=== PATIENT | female | born 1970 | race Caucasian/White ===

== ENCOUNTER 2017-10-04 13:56 | Emergency (ER) | payer BC ==
[2017-10-04] MEDS ORDERED: HYDROmorphone 1 MG/ML Syringe IM ONE (14:25)
--- NOTE | 2017-10-04 14:38 | EDM.PDOC ---
ED HPI GENERAL MEDICAL PROBLEM - General Chief Complaint: Lower Extremity Injury/Pain Stated Complaint: Left knee pain Time Seen by Provider: 10/04/17 14:10 Source of Information: Reports: Patient, RN Notes Reviewed History Limitations: Reports: No Limitations - History of Present Illness INITIAL COMMENTS - FREE TEXT/NARRATIVE: 47 year old female presents to the ED with complaints of left anterior knee pain and swelling. She said the symptoms came on suddenly after standing up off of a stool. She says her knee locked up. She's unable to straighten it or bear weight. She is unable to tolerate toe touch weight bearing. She ambulated in to the ED on crutches. She says the pain is excruciating. She reports left knee arthritis that is "bone on bone." She is scheduled to have a total knee replacement in November with a specialist in [facility]. She took 1 hydrocodone about 1 hour [employer] with no improvement. She denies numbness, tingling, fever, calf pain. Patient is unable to take NSAIDs due to history of bleeding gastric ulcer. Left Knee Pain Score (Numeric/FACES): 4 - Related Data Allergies Allergy/AdvReac Type Severity Reaction Status Date / Time No Known Allergies Allergy Verified 10/04/17 14:03 Home Meds: Home Meds Acetaminophen/oxyCODONE [Percocet 325-5 MG] 1 - 2 tab PO Q4H PRN #20 tablet [Rx] Review of Systems - Review of Systems Review Of Systems: See Below Constitutional: Reports: No Symptoms. Denies: Chills, Fever Musculoskeletal: Reports: Joint Pain, Joint Swelling Skin: Reports: No Symptoms. Denies: Erythema, Wound Neurological: Reports: No Symptoms. Denies: Numbness, Tingling ED EXAM, GENERAL - Physical Exam Exam: See Below Exam Limited By: No Limitations General Appearance: Alert, WD/WN, Moderate Distress Extremities: Joint Swelling, Other (Left knee joint effusion. Tenderness to palpation of the anterior knee. No deformity, erythema, or crepitus. Patient is sitting with knee slightly flexed. She is guarded and unwilling to move the knee. Exam is limited. Neurovascular status is intact distally. Negative brenna' s. No calf erythema or swelling. Swelling is isolated to the knee joint. No increased warmth. ). No: Brenna's Sign Neurological: Alert, Normal Cognition, No Motor/Sensory Deficits Skin Exam: Warm, Dry, Intact. No: Erythema, Increased Warmth Course - Vital Signs Last Recorded V/S: Last Vital Signs Temp 97.5 F 10/04/17 14:05 Pulse 81 10/04/17 14:05 Resp 20 10/04/17 14:05 BP 142/88 H 10/04/17 14:05 Pulse Ox 97 10/04/17 14:05 - Orders/Labs/Meds Orders: Active Orders 24 hr Category Date Time Status DME for Discharge [COMM] Stat Oth 10/04/17 15:29 Ordered Meds: Medications Discontinued Medications Generic Name Dose Route Start Last Admin Trade Name Freq PRN Reason Stop Dose Admin Hydromorphone HCl 1 mg 10/04/17 14:25 10/04/17 14:33 Dilaudid IM 10/04/17 14:26 1 mg ONETIME ONE Administration - Re-Assessments/Exams Free Text/Narrative Re-Assessment/Exam: X-ray of left knee reviewed with Dr. South. No acute injury identified. Her patella is well aligned. She has osteophytes to the patella, medial and lateral knee. Joint space is narrowed. Dr. Quiroz read the x-ray and agrees with findings but reports suboptimal study. He recommended CT or MRI if needed. Patient did not have an acute injury, therefore further imaging is not indicated. Will place patient in mo wrap and and knee immobilizer as tolerated for symptom relief. Educated on supportive care. Discharge instructions as documented. Departure - Departure Time of Disposition: 15:51 Disposition: Home, Self-Care 01 Condition: Good Clinical Impression: DJD (degenerative joint disease) of knee Qualifiers: Osteoarthritis type: unspecified Laterality: left Qualified Code(s): M17.12 - Unilateral primary osteoarthritis, left knee - Discharge Information Prescriptions: Acetaminophen/oxyCODONE [Percocet 325-5 MG] 1 - 2 tab PO Q4H PRN #20 tablet PRN Reason: Pain Referrals: Nannette Wiley MD [Primary Care Provider] - Forms: ED Department Discharge Additional Instructions: Rest, ice and elevate Mo wrap as tolerated Knee immobilizer as tolerated Percocet 1-2 tabs every 4-6 hours as needed for pain Call your surgeon on Saturday - My Orders Last 24 Hours: My Active Orders 10/04/17 15:29 DME for Discharge [COMM] Stat - Assessment/Plan Last 24 Hours: My Active Orders 10/04/17 15:29 DME for Discharge [COMM] Stat
--- NOTE | 2017-10-04 15:40 | CR ---
Left knee: 4 views of the left knee were obtained. Comparison: Previous left knee study of 01/01/17. Joint spaces are not well seen due to knee flexion. Medial joint space narrowing is seen on prior study. Osteophytes are noted off the medial and lateral knees. Osteophytes are noted off the patella. No joint effusion is seen. Impression: 1. Suboptimal study due to knee flexion. Degenerative change is felt to be present. 2. No definite acute abnormality is seen. If patient has sufficient symptoms, CT or MRI could be considered to further evaluate. Diagnostic code #3
== END 2017-10-04 16:30 | disposition home or self-care (01) ==
LOC: JD.ED 13:56
DX: M17.12 Unilateral primary osteoarthritis, left knee (principal)
CPT/HCPCS: 73564; 96372; 99283; J1170

== ENCOUNTER 2019-08-02 16:16 | Emergency (ER) | payer BC ==
--- NOTE | 2019-08-02 17:07 | EDM.PDOC ---
ED HPI GENERAL MEDICAL PROBLEM - General Chief Complaint: Chest Pain Stated Complaint: CHEST PRESSURE,SOB Time Seen by Provider: 08/02/19 16:33 Source of Information: Reports: Patient, RN Notes Reviewed - History of Present Illness INITIAL COMMENTS - FREE TEXT/NARRATIVE: 49 year old female with onset of cough, congestion, sore throat about 2 weeks ago. She continues with frequent cough that is worsening, mostly nonproductive. she has has sinus congestion and drainage. she did have fever and chills initially that is gone. She was started on a course of doxycycline about 4 days ago. - Related Data Allergies Allergy/AdvReac Type Severity Reaction Status Date / Time No Known Allergies Allergy Verified 03/03/19 10:16 Home Meds: Home Meds Cholecalciferol (Vitamin D3) [Vitamin D3] 1 tab PO DAILY 08/02/19 [History] Fish Oil/[place]-3 Fatty Acids [Fish Oil 1,000 MG] 1 tab PO DAILY 08/02/19 [ History] Multivitamin [Multivitamins] 1 tab PO DAILY 08/02/19 [History] Vitamin B Complex 1 tab PO DAILY 08/02/19 [History] Zolpidem [Ambien] 10 mg PO DAILY 08/02/19 [History] metFORMIN [Glucophage XR] 750 mg PO BID 08/02/19 [History] Past Medical History MIXER PIGMENT History: Reports: , Other (See Below) Other MIXER PIGMENT History: breast 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, tummy tuck Musculoskeletal History: Reports: Other (See Below) Other Musculoskeletal History: chronic knee pain; knee replacement scheduled in november - Past Surgical History HEENT Surgical History: Reports: Adenoidectomy, Tonsillectomy GI Surgical History: Reports: Appendectomy, Cholecystectomy Female Surgical History: Reports: Breast Reconstruction Social & Family History - Family History Family Medical History: Noncontributory - Tobacco Use Smoking Status *Q: Never Smoker Second Hand Smoke Exposure: No - Caffeine Use Caffeine Use: Reports: Soda - Recreational Drug Use Recreational Drug Use: No ED ROS GENERAL - Review of Systems Review Of Systems: See Below Constitutional: Reports: Fever, Chills HEENT: Reports: Rhinitis, Sinus Problem (she does have sinus salvador. ), Throat Pain (agone) Respiratory: Denies: Shortness of Breath Cardiovascular: Reports: Chest Pain (with coughing) GI/Abdominal: Denies: Abdominal Pain, Nausea, Vomiting Musculoskeletal: Denies: Shoulder Pain, Arm Pain Skin: Reports: No Symptoms Neurological: Reports: No Symptoms ED EXAM, GENERAL - Physical Exam Exam: See Below General Appearance: Alert, Other (frequent nonproductive cough) Eye Exam: Bilateral Eye: PERRL Neck: Supple Respiratory/Chest: No Respiratory Distress, Lungs Clear, Normal Breath Sounds. No: Rhonchi, Wheezing Cardiovascular: Regular Rate, Rhythm Back Exam: No: CVA Tenderness (L), CVA Tenderness (R) Extremities: Normal Inspection, Normal Range of Motion. No: Pedal Edema, Leg Pain Skin Exam: Warm, Dry, Normal Color EKG INTERPRETATION EKG Date: 08/02/19 Rhythm: NSR [place]: Normal P-Wave: Present QRS: Normal ST-T: Normal Course - Vital Signs Last Recorded V/S: Last Vital Signs Temp 97.6 F 08/02/19 16:32 Pulse 62 08/02/19 16:32 Resp 16 08/02/19 16:32 BP 143/89 H 08/02/19 16:32 Pulse Ox 100 08/02/19 18:01 - Orders/Labs/Meds Orders: Active Orders 24 hr Category Date Time Status EKG 12 Lead [EKG Documentation Completion] [RC] STAT Care 08/02/19 16:49 Active RT Aerosol Therapy [RC] ASDIRECTED Care 08/02/19 18:01 Active Chest 1V Frontal [CR] Stat Exams 08/02/19 16:48 Taken Labs: Laboratory Tests 08/02/19 Range/Units 16:59 WBC 7.61 (3.98-10.04) K/mm3 RBC 4.10 (3.98-5.22) M/mm3 Hgb 12.5 (11.2-15.7) gm/L Hct 36.8 (34.1-44.9) % MCV 89.8 (79.4-94.8) fl MCH 30.5 (25.6-32.2) pg MCHC 34.0 (32.2-35.5) g/dl RDW Std Deviation 42.2 (36.4-46.3) fL Plt Count 262 (182-369) K/mm3 MPV 9.5 (9.4-12.3) fl Neut % (Auto) 49.8 (34.0-71.1) % Lymph % (Auto) 40.5 (19.3-51.7) % [place] % (Auto) 7.9 (4.7-12.5) % Eos % (Auto) 1.4 (0.7-5.8) Baso % (Auto) 0.3 (0.1-1.2) % Neut # (Auto) 3.79 (1.56-6.13) K/mm3 Lymph # (Auto) 3.08 (1.18-3.74) K/mm3 [place] # (Auto) 0.60 H (0.24-0.36) K/mm3 Eos # (Auto) 0.11 (0.04-0.36) K/mm3 Baso # (Auto) 0.02 (0.01-0.08) K/mm3 Meds: Medications Discontinued Medications Generic Name Dose Route Start Last Admin Trade Name Freq PRN Reason Stop Dose Admin Albuterol 2.5 mg 08/02/19 18:01 08/02/19 18:10 Proventil Neb Soln NEB 08/02/19 18:02 2.5 mg ONETIME ONE Administration Albuterol Confirm 08/02/19 18:08 08/02/19 18:13 Proventil Neb Soln Administered 08/02/19 18:09 Not Given Dose 2.5 mg .ROUTE .STK-MED ONE - Re-Assessments/Exams Free Text/Narrative Re-Assessment/Exam: 08/02/19 18:57 CXR, WBC nl, she did get good relief of her cough after an albuterol neb., discharge instr. as documented. Departure - Departure Time of Disposition: 18:18 Disposition: Home, Self-Care 01 Condition: Fair Clinical Impression: Bronchitis - Discharge Information Instructions: Acute Bronchitis, Adult, [id number] Referrals: Melvi Allred PA-C [Primary Care Provider] - Forms: ED Department Discharge Additional Instructions: continue doxycycline antibiotic as prescribed, rest, vaporizer or steam as needed. Albuterol inhaler, 2 puffs q 4 to 6 hours as needed for further difficulty coughing or breathing. Follow up clinic in about 5 days for recheck if not better, return to ED as needed if symptoms worsening in any way. - My Orders Last 24 Hours: My Active Orders 08/02/19 16:48 Chest 1V Frontal [CR] Stat 08/02/19 16:49 EKG 12 Lead [EKG Documentation Completion] [RC] STAT 08/02/19 18:01 RT Aerosol Therapy [RC] ASDIRECTED - Assessment/Plan Last 24 Hours: My Active Orders 08/02/19 16:48 Chest 1V Frontal [CR] Stat 08/02/19 16:49 EKG 12 Lead [EKG Documentation Completion] [RC] STAT 08/02/19 18:01 RT Aerosol Therapy [RC] ASDIRECTED
[2019-08-02] MEDS ORDERED: Albuterol 0.083% 2.5 MG/3 ML Neb Soln NEB ONE (18:01)
[2019-08-02] MEDS ORDERED: Albuterol 0.083% 2.5 MG/3 ML Neb Soln ONE (18:08)
--- NOTE | 2019-08-03 14:12 | CR ---
Chest: Portable view of the chest was obtained. Comparison: No prior chest x-ray. Heart size and mediastinum are normal. Lungs are clear. Bony structures are grossly intact. Impression: 1. Nothing acute is appreciated on portable chest x-ray. Diagnostic code #1
== END 2019-08-02 19:05 | disposition home or self-care (01) ==
LOC: JD.ED 16:16
DX: J40 Bronchitis, not specified as acute or chronic (principal); Z79.899 Other long term (current) drug therapy
CPT/HCPCS: 36415; 71045; 71045-26; 85025; 93005; 93010; 94640; 99283; 99285-25

== ENCOUNTER 2020-02-04 13:55 | Emergency (ER) | payer BC ==
[2020-02-04] MEDS ORDERED: Ondansetron 4 MG/2 ML SDV IVPUSH ONE (14:46)
[2020-02-04] MEDS ORDERED: Sodium Chloride 0.9% 10 ML Syringe FLUSH PRN (14:46)
[2020-02-04] MEDS ORDERED: Ketorolac 30 MG/ML SDV IVPUSH ONE (14:46)
[2020-02-04] MEDS ORDERED: Sodium Chloride 0.9% 1,000 ML IV SCH (15:00)
[2020-02-04] MEDS ORDERED: Diatrizoate Meglumine/Diatrizoate Sodium 37% 120 ML Bottle PO ONE (15:00)
[2020-02-04] MEDS ORDERED: Iopamidol 612 MG/ML 100 ML Bottle IVPUSH ONE (15:00)
[2020-02-04] MEDS ORDERED: Sodium Chloride 0.9% 10 ML Syringe FLUSH ONE (15:00)
--- NOTE | 2020-02-04 17:19 | CT ---
CT abdomen and pelvis Technique: Multiple axial sections were obtained from above the dome of the diaphragm inferiorly through the pubic symphysis. Intravenous and oral contrast was utilized. Delayed images were obtained through the bladder. Findings: Small bowel appears slightly dilated. Uncertain if this is real or due to distention from contrast. Prior abdominal wall surgery is noted with midline scar. Visualized lung bases show nothing acute. Partially visualized bilateral breast prosthesis are noted. Liver shows no focal abnormality. Spleen appears within normal limits. Small hiatal hernia is seen. Gastric surgery is noted. Adrenal glands show no nodule. Pancreas is within normal limits. Surgical clips seen from prior cholecystectomy. Kidneys show symmetric contrast enhancement without hydronephrosis or mass. Aorta shows no aneurysm. No retroperitoneal adenopathy or mesenteric abnormalities are seen. No pelvic mass or adenopathy is identified. Appendix not visualized with certainty. No free fluid or inflammatory change is seen. Scattered diverticuli are seen within the colon without inflammatory change of diverticulitis. Bone window settings were reviewed which shows slight degenerative change scattered within the spine. Delayed images shows contrast within the bladder. Impression: 1. Mildly dilated small bowel. As mentioned above, uncertain if this is real or due to distention from contrast. I suspect the latter is the most likely etiology. Supine and upright abdominal x-ray is recommended to further evaluate. 2. Other nonacute findings as noted above. Diagnostic code #3 Study was dictated in MDT
[2020-02-04] MEDS ORDERED: HYDROmorphone 0.5 MG/0.5 ML Syringe IVPUSH ONE ×3 (17:27→19:14)
--- NOTE | 2020-02-04 18:02 | EDM.PDOC ---
ED HPI GENERAL MEDICAL PROBLEM - General Chief Complaint: Abdominal Pain Stated Complaint: ABDOMINAL PAIN/CRAMPING Time Seen by Provider: 02/04/20 14:29 Source of Information: Reports: Patient History Limitations: Reports: No Limitations - History of Present Illness INITIAL COMMENTS - FREE TEXT/NARRATIVE: Patient is a 49-year-old female who presents with complaints abdominal pain, nausea, vomiting, and fatigue. Patient states that she was recently on a trip to [place]. She returned on Saturday or Saturday. She verbalizes that she is supposed to wear in entire body compression wrap due to some plastic surgery she had last fall. She did not wear this when she went to [place], so she thought that her symptoms were related to retaining fluid. Symptoms have been getting progressively worse. She states that she had a little bit of diarrhea on Saturday, however has not had any since that time. This morning she had some dry heaving and then vomiting of yellow bile. She describes the abdominal pain is crampy in nature and is generalized throughout the abdomen. She has note she has had no known sick contacts. She does not think she is had a bowel movement for the last few days and does not feel like she has been passing gas. Denies any fever or chills. Abdomen Pain Score (Numeric/FACES): 8 - Related Data Allergies Allergy/AdvReac Type Severity Reaction Status Date / Time No Known Allergies Allergy Verified 02/04/20 14:17 Home Meds: Home Meds Cholecalciferol (Vitamin D3) [Vitamin D3] 1 tab PO DAILY 08/02/19 [History] Fish Oil/[place]-3 Fatty Acids [Fish Oil 1,000 MG] 1 tab PO DAILY 08/02/19 [ History] Multivitamin [Multivitamins] 1 tab PO DAILY 08/02/19 [History] Vitamin B Complex 1 tab PO DAILY 08/02/19 [History] Zolpidem [Ambien] 10 mg PO DAILY 08/02/19 [History] metFORMIN [Glucophage XR] 750 mg PO BID 08/02/19 [History] Ascorbate Calcium [Vitamin C] 500 mg PO DAILY 02/04/20 [History] Ferrous Sulfate [Iron] 325 mg PO DAILY 02/04/20 [History] Past Medical History Cardiovascular History: Reports: None Respiratory History: Reports: None Gastrointestinal History: Reports: Other (See Below) Other Gastrointestinal History: Ulcers 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: breast 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, tummy tuck Musculoskeletal History: Reports: Other (See Below) Other Musculoskeletal History: chronic knee pain; knee replacement scheduled in november Neurological History: Reports: None Psychiatric History: Reports: None Endocrine/Metabolic History: Reports: None Hematologic History: Reports: None Immunologic History: Reports: None Oncologic (Cancer) History: Reports: None - Infectious Disease History Infectious Disease History: Reports: None - Past Surgical History HEENT Surgical History: Reports: Adenoidectomy, Tonsillectomy GI Surgical History: Reports: Appendectomy, Bariatric Procedure, Cholecystectomy , Other (See Below) Female Surgical History: Reports: Breast Implant, Breast Reconstruction Musculoskeletal Surgical History: Reports: Knee Replacement Dermatological Surgical History: Reports: Plastic Surgical Reconstruction/Repair Social & Family History - Family History Family Medical History: Noncontributory - Tobacco Use Smoking Status *Q: Never Smoker - Caffeine Use Caffeine Use: Reports: Coffee, Soda - Recreational Drug Use Recreational Drug Use: Yes Recreational Drug Type: Reports: Marijuana/Hashish Other Recreational Drug Type: Medical Marijuana ED ROS GENERAL - Review of Systems Review Of Systems: Comprehensive ROS is negative, except as noted in HPI. ED EXAM, GI/ABD - Physical Exam Exam: See Below Exam Limited By: No Limitations General Appearance: Alert, WD/WN, No Apparent Distress Respiratory/Chest: No Respiratory Distress, Lungs Clear, Normal Breath Sounds, No Accessory Muscle Use, Chest Non-Tender Cardiovascular: Normal Peripheral Pulses, Regular Rate, Rhythm, No Edema, No Gallop, No JVD, No Murmur, No Rub GI/Abdominal Exam: Normal Bowel Sounds, Soft, No Organomegaly, No Distention, No Abnormal Bruit, No Mass, Pelvis Stable, Tender (Generalized throughout) Neurological: Alert, Oriented, CN II-XII Intact, Normal Cognition, Normal Gait, Normal Reflexes, No Motor/Sensory Deficits Psychiatric: Normal Affect, Normal Mood Skin Exam: Warm, Dry, Intact, Normal Color, No Rash Course - Vital Signs Last Recorded V/S: Last Vital Signs Temp 96.2 F L 02/04/20 14:11 Pulse 90 02/04/20 14:11 Resp 16 02/04/20 14:11 BP 133/86 02/04/20 14:11 Pulse Ox 98 02/04/20 14:11 - Orders/Labs/Meds Orders: Active Orders 24 hr Category Date Time Status Peripheral IV Care [RC] . DIRECTED Care 02/04/20 14:47 Active Sodium Chloride 0.9% [Normal Saline] 1,000 ml Med 02/04/20 15:00 Active IV ASDIRECTED Sodium Chloride 0.9% [Saline Flush] Med 02/04/20 14:46 Active 10 ml FLUSH ASDIRECTED PRN Peripheral IV Insertion Adult [OM.PC] Stat Oth 02/04/20 14:46 Ordered Medication Orders Sodium Chloride (Normal Saline) 1,000 mls @ 150 mls/hr IV ASDIRECTED LOLI Last Admin: 02/04/20 15:02 Dose: 150 mls/hr Sodium Chloride (Saline Flush) 10 ml FLUSH ASDIRECTED PRN PRN Reason: Keep Vein Open Last Admin: 02/04/20 16:04 Dose: 10 ml Labs: Laboratory Tests 02/04/20 02/04/20 02/04/20 Range/Units 15:15 15:15 18:35 WBC 13.54 H (3.98-10.04) K/mm3 RBC 5.08 (3.98-5.22) M/mm3 Hgb 15.1 D (11.2-15.7) gm/dl Hct 45.4 H (34.1-44.9) % MCV 89.4 (79.4-94.8) fl MCH 29.7 (25.6-32.2) pg MCHC 33.3 (32.2-35.5) g/dl RDW Std Deviation 43.2 (36.4-46.3) fL Plt Count 236 (182-369) K/mm3 MPV 10.1 (9.4-12.3) fl Neut % (Auto) 95.4 H (34.0-71.1) % Lymph % (Auto) 2.2 L (19.3-51.7) % [place] % (Auto) 2.1 L (4.7-12.5) % Eos % (Auto) 0.1 L (0.7-5.8) Baso % (Auto) 0.1 (0.1-1.2) % Neut # (Auto) 12.89 H (1.56-6.13) K/mm3 Lymph # (Auto) 0.30 L (1.18-3.74) K/mm3 [place] # (Auto) 0.29 (0.24-0.36) K/mm3 Eos # (Auto) 0.02 L (0.04-0.36) K/mm3 Baso # (Auto) 0.02 (0.01-0.08) K/mm3 Manual Slide Review Abnormal smear Sodium 137 (136-145) mEq/L Potassium 4.3 (3.5-5.1) mEq/L Chloride 101 (98-107) mEq/L Carbon Dioxide 25 (21-32) mEq/L Anion Gap 15.3 H (5-15) BUN 23 H (7-18) mg/dL Creatinine 0.7 (0.55-1.02) mg/dL Est Cr Clr Drug Dosing 68.29 mL/min Estimated GFR (MDRD) > 60 (>60) mL/min BUN/Creatinine Ratio 32.9 H (14-18) Glucose 124 H (74-106) mg/dL Calcium 9.2 (8.5-10.1) mg/dL Total Bilirubin 0.5 (0.2-1.0) mg/dL AST 14 L (15-37) U/L ALT 25 (14-59) U/L Alkaline Phosphatase 101 (46-116) U/L C-Reactive Protein 2.3 H* (<1.0) mg/dL Total Protein 7.4 (6.4-8.2) g/dl Albumin 3.9 (3.4-5.0) g/dl Globulin 3.5 gm/dL Albumin/Globulin Ratio 1.1 (1-2) Urine Color Yellow (Yellow) Urine Appearance Clear (Clear) Urine pH 5.5 (5.0-8.0) Ur Specific [place] 1.010 (1.005-1.030) Urine Protein Negative (Negative) Urine Glucose (UA) Negative (Negative) Urine Ketones 1+ H (Negative) Urine Occult Blood Negative (Negative) Urine Nitrite Negative (Negative) Urine Bilirubin Negative (Negative) Urine Urobilinogen 0.2 (0.2-1.0) Ur Leukocyte Esterase Negative (Negative) Urine RBC 0-5 (0-5) /hpf Urine WBC 0-5 (0-5) /hpf Ur Squamous Epith Cells 0-5 (0-5) /hpf Urine Bacteria Occasional (FEW) /hpf Urine Mucus Not seen (FEW) /hpf Meds: Medications Generic Name Dose Route Start Last Admin Trade Name Lala PRN Reason Stop Dose Admin Sodium Chloride 1,000 mls @ 150 mls/hr 02/04/20 15:00 02/04/20 15:02 Normal Saline IV 150 mls/hr ASDIRECTED LOLI Administration Sodium Chloride 10 ml 02/04/20 14:46 02/04/20 16:04 Saline Flush FLUSH 10 ml ASDIRECTED PRN Administration Keep Vein Open Discontinued Medications Generic Name Dose Route Start Last Admin Trade Name Freq PRN Reason Stop Dose Admin Diatrizoate Meglum/Diatrizoate Sod 90 ml 02/04/20 15:00 02/04/20 16:04 Gastrografin 37% PO 02/04/20 15:01 90 ml ONETIME ONE Administration Dicyclomine HCl 20 mg 02/04/20 18:41 Bentyl PO 02/04/20 18:42 ONETIME ONE Hydromorphone HCl 0.5 mg 02/04/20 17:27 02/04/20 17:30 Dilaudid IVPUSH 02/04/20 17:28 0.5 mg ONETIME ONE Administration Hydromorphone HCl Confirm 02/04/20 17:28 02/04/20 18:57 Dilaudid Administered 02/04/20 17:29 Not Given Dose 0.5 mg .ROUTE .STK-MED ONE Hydromorphone HCl 0.5 mg 02/04/20 18:46 02/04/20 18:58 Dilaudid IVPUSH 02/04/20 18:47 0.5 mg ONETIME ONE Administration Hydromorphone HCl 0.5 mg 02/04/20 19:14 02/04/20 19:20 Dilaudid IVPUSH 02/04/20 19:15 0.5 mg ONETIME ONE Administration Iopamidol 100 ml 02/04/20 15:00 02/04/20 16:04 Isovue-300 (61%) IVPUSH 02/04/20 15:01 100 ml ONETIME ONE Administration Ketorolac Tromethamine 30 mg 02/04/20 14:46 02/04/20 15:01 Toradol IVPUSH 02/04/20 14:47 30 mg ONETIME ONE Administration Lorazepam 0.5 mg 02/04/20 18:36 02/04/20 18:47 Ativan IVPUSH 02/04/20 18:37 0.5 mg ONETIME ONE Administration Ondansetron HCl 4 mg 02/04/20 14:46 02/04/20 15:02 Zofran IVPUSH 02/04/20 14:47 4 mg ONETIME ONE Administration Sodium Chloride 10 ml 02/04/20 15:00 02/04/20 15:18 Saline Flush FLUSH 02/04/20 15:01 10 ml ONETIME ONE Administration - Re-Assessments/Exams Free Text/Narrative Re-Assessment/Exam: I have ordered a CBC, CMP, CRP, urinalysis. Based on patient's symptoms and her history of abdominal surgeries, I will complete a CT scan to evaluate for possible small bowel obstruction. 02/04/20 18:03 WBCs were elevated at 13.54, anion gap slightly elevated at 15.3, BUN 23, CRP 2.3, urinalysis is still pending. CT of the abdomen showed a mildly dilated small bowel. Radiologist was uncertain if it was due to distention from the contrast or an actual dilation. He recommended a abdomen flat and upright be completed to evaluate this. I have ordered this test. Patient complained of increased abdominal cramping as well as a headache. I will order Dilaudid 0.5 mg to be given now. 02/04/20 19:05 Abdomen 2 view x-ray shows gas rhythm with several mildly dilated small bowel loops. Contrast is seen within the colon. Findings rule out complete bowel obstruction but partial small bowel obstruction is felt to be present. I called and spoke with the on-call surgeon, Dr. Oro. He will reviewed the images and call back. 02/04/201949 Dr. Rojas was here to see the patient. He verbalized that he did not necessarily see the small bowel obstruction on the imaging, however with her history of bariatric surgery he felt that it would be beneficial for her to be seen by bariatric surgeon. Called [facility]. Spoke to Dr. South. She accepted the patient for direct admission. Patient will be transferred via [facility]. Departure - Departure Time of Disposition: 19:50 Disposition: DC/Tfer to Acute Hospital 02 Condition: Fair Clinical Impression: Abdominal pain Qualifiers: Abdominal location: generalized Qualified Code(s): R10.84 - Generalized abdominal pain - Discharge Information Referrals: Fridrich,Melvi F, PA-C [Primary Care Provider] - Forms: ED Department Discharge Sepsis Event Note - Evaluation Sepsis Screening Result: No Definite Risk - Focused Exam Vital Signs: Vital Signs Temp Pulse Resp BP Pulse Ox 02/04/20 14:11 96.2 F L 90 16 133/86 98 Date Exam was Performed: 02/04/20 Time Exam was Performed: 20:00 - My Orders Last 24 Hours: My Active Orders 02/04/20 14:46 Sodium Chloride 0.9% [Saline Flush] 10 ml FLUSH ASDIRECTED PRN Peripheral IV Insertion Adult [OM.PC] Stat 02/04/20 14:47 Peripheral IV Care [RC] . DIRECTED 02/04/20 15:00 Sodium Chloride 0.9% [Normal Saline] 1,000 ml IV ASDIRECTED - Assessment/Plan Last 24 Hours: My Active Orders 02/04/20 14:46 Sodium Chloride 0.9% [Saline Flush] 10 ml FLUSH ASDIRECTED PRN Peripheral IV Insertion Adult [OM.PC] Stat 02/04/20 14:47 Peripheral IV Care [RC] . DIRECTED 02/04/20 15:00 Sodium Chloride 0.9% [Normal Saline] 1,000 ml IV ASDIRECTED
[2020-02-04] MEDS ORDERED: LORazepam 2 MG/ML SDV IVPUSH ONE (18:36)
[2020-02-04] MEDS ORDERED: Dicyclomine 10 MG Cap PO ONE (18:41)
[2020-02-04] MEDS: HYDROmorphone 0.5 MG/0.5 ML Syringe ONE ×2 (18:46→18:57)
--- NOTE | 2020-02-04 18:48 | CR ---
Abdomen: Supine and upright views the abdomen were obtained. Air is noted within several persisting dilated loops of small bowel are seen. Contrast is noted within the colon from prior CT exam. Contrast is also noted within the bladder. Findings are compatible with a partial small bowel obstruction. Bony structures are unremarkable. Multiple surgical clips within the abdomen are seen. Impression: 1. Gas within several mildly dilated small bowel loops. Contrast is seen within the colon. Findings rule out complete small bowel obstruction but partial small bowel obstruction is felt to be present. Diagnostic code #3 Study was dictated in MDT
--- NOTE | 2020-02-04 20:05 | PCM.HP.2 ---
H&P History of Present Illness - General Date of Service: 02/04/20 Source of Information: Patient History Limitations: Reports: No Limitations - History of Present Illness Initial Comments - Free Text/Narative: Patient has hx of RNYGB 9yrs ago and presents with history of progressively worsening abdominal pain, malaise and nausea. This started on Saturday where the patient reports malaise and lack of appetite after returning from vacation in [place]. Over the course of the following days, the patients abdominal pain became more intense and frequent, especially later during the day. yesterday she started to dry heave and today she had bilious emesis. This has intensified. She reports that she is able to tolerate protein shakes but not much solids. She can eat solids during the day but sometimes they increase the pain. pain is colicky, intense, 10/10, spreads through the abdomen. Associated with flushing. Onset of Symptoms: Reports: Gradual Duration of Symptoms: Reports: Getting Worse Location: Reports: Abdomen Quality: Reports: Ache Severity: Severe Improves with: Reports: None Worsens with: Reports: None Associated Symptoms: Reports: Diaphoresis, Loss of Appetite, Malaise, Nausea/ Vomiting, Weakness Abdomen Pain Score (Numeric/FACES): 8 - Related Data Allergies/Adverse Reactions: Allergies Allergy/AdvReac Type Severity Reaction Status Date / Time No Known Allergies Allergy Verified 02/04/20 14:17 Home Medications: Home Meds Cholecalciferol (Vitamin D3) [Vitamin D3] 1 tab PO DAILY 08/02/19 [History] Fish Oil/[place]-3 Fatty Acids [Fish Oil 1,000 MG] 1 tab PO DAILY 08/02/19 [ History] Multivitamin [Multivitamins] 1 tab PO DAILY 08/02/19 [History] Vitamin B Complex 1 tab PO DAILY 08/02/19 [History] Zolpidem [Ambien] 10 mg PO DAILY 08/02/19 [History] metFORMIN [Glucophage XR] 750 mg PO BID 08/02/19 [History] Ascorbate Calcium [Vitamin C] 500 mg PO DAILY 02/04/20 [History] Ferrous Sulfate [Iron] 325 mg PO DAILY 02/04/20 [History] Past Medical History Cardiovascular History: Reports: None Respiratory History: Reports: None Gastrointestinal History: Reports: Other (See Below) Other Gastrointestinal History: Ulcers 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: breast 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, tummy tuck Musculoskeletal History: Reports: Other (See Below) Other Musculoskeletal History: chronic knee pain; knee replacement scheduled in november Neurological History: Reports: None Psychiatric History: Reports: None Endocrine/Metabolic History: Reports: None Hematologic History: Reports: None Immunologic History: Reports: None Oncologic (Cancer) History: Reports: None - Infectious Disease History Infectious Disease History: Reports: None - Past Surgical History HEENT Surgical History: Reports: Adenoidectomy, Tonsillectomy GI Surgical History: Reports: Appendectomy, Bariatric Procedure, Cholecystectomy , Other (See Below) Female Surgical History: Reports: Breast Implant, Breast Reconstruction Musculoskeletal Surgical History: Reports: Knee Replacement Dermatological Surgical History: Reports: Plastic Surgical Reconstruction/Repair Social & Family History - Family History Family Medical History: Noncontributory - Tobacco Use Smoking Status *Q: Never Smoker - Caffeine Use Caffeine Use: Reports: Coffee, Soda - Recreational Drug Use Recreational Drug Use: Yes Recreational Drug Type: Reports: Marijuana/Hashish Other Recreational Drug Type: Medical Marijuana H&P Review of Systems - Review of Systems: Review Of Systems: See Below General: Reports: No Symptoms, Malaise, Weakness, Diaphoresis, Decreased Appetite HEENT: Reports: No Symptoms Pulmonary: Reports: No Symptoms Cardiovascular: Reports: No Symptoms Gastrointestinal: Reports: Abdominal Pain, Anorexia Genitourinary: Reports: No Symptoms Skin: Reports: No Symptoms Psychiatric: Reports: No Symptoms Neurological: Reports: No Symptoms Hematologic/Lymphatic: Reports: No Symptoms Exam - Exam Exam: See Below - Vital Signs Vital Signs: Last Vital Signs Temp 96.2 F L 02/04/20 14:11 Pulse 90 02/04/20 14:11 Resp 16 02/04/20 14:11 BP 133/86 02/04/20 14:11 Pulse Ox 98 02/04/20 14:11 Weight: 71.214 kg - Exam General: Alert, Oriented, Cooperative, Moderate Distress Lungs: Clear to Auscultation, Normal Respiratory Effort Cardiovascular: Regular Rate, Regular Rhythm, Normal S1, Normal S2 GI/Abdominal Exam: Normal Bowel Sounds, Soft, Non-Tender, No Organomegaly, No Distention - Patient Data Lab Results Last 24 hrs: Laboratory Results - last 24 hr 02/04/20 02/04/20 02/04/20 Range/Units 15:15 15:15 18:35 WBC 13.54 H (3.98-10.04) K/mm3 RBC 5.08 (3.98-5.22) M/mm3 Hgb 15.1 D (11.2-15.7) gm/dl Hct 45.4 H (34.1-44.9) % MCV 89.4 (79.4-94.8) fl MCH 29.7 (25.6-32.2) pg MCHC 33.3 (32.2-35.5) g/dl RDW Std Deviation 43.2 (36.4-46.3) fL Plt Count 236 (182-369) K/mm3 MPV 10.1 (9.4-12.3) fl Neut % (Auto) 95.4 H (34.0-71.1) % Lymph % (Auto) 2.2 L (19.3-51.7) % [place] % (Auto) 2.1 L (4.7-12.5) % Eos % (Auto) 0.1 L (0.7-5.8) Baso % (Auto) 0.1 (0.1-1.2) % Neut # (Auto) 12.89 H (1.56-6.13) K/mm3 Lymph # (Auto) 0.30 L (1.18-3.74) K/mm3 [place] # (Auto) 0.29 (0.24-0.36) K/mm3 Eos # (Auto) 0.02 L (0.04-0.36) K/mm3 Baso # (Auto) 0.02 (0.01-0.08) K/mm3 Manual Slide Review Abnormal smear Sodium 137 (136-145) mEq/L Potassium 4.3 (3.5-5.1) mEq/L Chloride 101 (98-107) mEq/L Carbon Dioxide 25 (21-32) mEq/L Anion Gap 15.3 H (5-15) BUN 23 H (7-18) mg/dL Creatinine 0.7 (0.55-1.02) mg/dL Est Cr Clr Drug Dosing 68.29 mL/min Estimated GFR (MDRD) > 60 (>60) mL/min BUN/Creatinine Ratio 32.9 H (14-18) Glucose 124 H (74-106) mg/dL Calcium 9.2 (8.5-10.1) mg/dL Total Bilirubin 0.5 (0.2-1.0) mg/dL AST 14 L (15-37) U/L ALT 25 (14-59) U/L Alkaline Phosphatase 101 (46-116) U/L C-Reactive Protein 2.3 H* (<1.0) mg/dL Total Protein 7.4 (6.4-8.2) g/dl Albumin 3.9 (3.4-5.0) g/dl Globulin 3.5 gm/dL Albumin/Globulin Ratio 1.1 (1-2) Urine Color Yellow (Yellow) Urine Appearance Clear (Clear) Urine pH 5.5 (5.0-8.0) Ur Specific [place] 1.010 (1.005-1.030) Urine Protein Negative (Negative) Urine Glucose (UA) Negative (Negative) Urine Ketones 1+ H (Negative) Urine Occult Blood Negative (Negative) Urine Nitrite Negative (Negative) Urine Bilirubin Negative (Negative) Urine Urobilinogen 0.2 (0.2-1.0) Ur Leukocyte Esterase Negative (Negative) Urine RBC 0-5 (0-5) /hpf Urine WBC 0-5 (0-5) /hpf Ur Squamous Epith Cells 0-5 (0-5) /hpf Urine Bacteria Occasional (FEW) /hpf Urine Mucus Not seen (FEW) /hpf Result Diagrams: 02/04/20 15:15 02/04/20 15:15 Sepsis Event Note - Evaluation Sepsis Screening Result: No Definite Risk - Focused Exam Vital Signs: Vital Signs Temp Pulse Resp BP Pulse Ox 02/04/20 14:11 96.2 F L 90 16 133/86 98 Date Exam was Performed: 02/04/20 Time Exam was Performed: 20:00 Problem List Initiated/Reviewed/Updated: No Orders Last 24hrs: Active Orders 24 hr Category Date Time Status Peripheral IV Care [RC] . DIRECTED Care 02/04/20 14:47 Active Sodium Chloride 0.9% [Normal Saline] 1,000 ml Med 02/04/20 15:00 Active IV ASDIRECTED Sodium Chloride 0.9% [Saline Flush] Med 02/04/20 14:46 Active 10 ml FLUSH ASDIRECTED PRN Peripheral IV Insertion Adult [OM.PC] Stat Oth 02/04/20 14:46 Ordered Medication Orders Sodium Chloride (Normal Saline) 1,000 mls @ 150 mls/hr IV ASDIRECTED LOLI Last Admin: 02/04/20 15:02 Dose: 150 mls/hr Sodium Chloride (Saline Flush) 10 ml FLUSH ASDIRECTED PRN PRN Reason: Keep Vein Open Last Admin: 02/04/20 16:04 Dose: 10 ml Assessment/Plan Comment:: Patient has intense colicky abdominal pain with history of RNYGB. This has been worsening over the past 3 days, now she has emesis. Although CT scan does not show definite obstruction, I strongly suspect that the patient has have intermittent obstruction. Other consideration if a marginal ulcer but this most commonly presents with epigastric tenderness. I think the patient needs exploratory laparoscopy to rule out obstruction. She would like to have this done by a bariatric surgeon. I recommended sending her to [facility] for evaluation by a bariatrics surgeon.
== END 2020-02-04 20:30 ==
LOC: JD.ED 13:55
DX: R10.84 Generalized abdominal pain (principal); Z79.899 Other long term (current) drug therapy
CPT/HCPCS: 36415; 74019; 74177; 80053; 81001; 85025; 86140; 96361; 96374; 96375; 96376; 99285; J1170; J1885; J2060; J2405; J7030; Q9963; Q9967; 99284; A9270-GY

== ENCOUNTER 2021-07-31 09:00 | Emergency (ER) | payer BC ==
[2021-07-31] MEDS ORDERED: Metoclopramide 10 MG/2 ML SDV IVPUSH ONE (09:39)
[2021-07-31] MEDS ORDERED: HYDROmorphone 0.5 MG/0.5 ML Syringe IVPUSH ONE (09:39)
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
[2021-07-31] MEDS ORDERED: Sodium Chloride 0.9% 1,000 ML IV SCH (09:45)
--- NOTE | 2021-07-31 10:19 | CT ---
CT chest Technique: Multiple axial sections through the chest were obtained. Intravenous contrast was not utilized. Reconstructed coronal and sagittal images were obtained. Comparison: Prior chest x-ray of 08/02/19. Findings: Bilateral breast prostheses are noted. Thoracic aorta shows no aneurysm. Minimal atherosclerotic calcification is noted. Mediastinum and hilar regions show no adenopathy. No axillary adenopathy is seen. Several surgical clips are seen within the right axillary region which are felt to be incidental. No pericardial thickening is seen. Heart size is within normal limits. Visualized upper abdominal structures show prior cholecystectomy. Prior stomach surgery is noted as well as bowel surgery. Several surgical clips are also noted within the anterior abdominal wall. Minimal calcification is seen within the parenchyma of the left kidney. Lung window settings were reviewed which show no acute change within either lung. No pleural effusions or pneumothorax are seen. Slight degenerative change is noted within the spine. Slightly displaced fracture is noted within the lateral right seventh rib. This is likely acute. No additional rib abnormality is appreciated. Impression: 1. Bilateral breast prostheses. Prior abdominal surgery is noted. Several surgical clips are seen within the right axillary region. 2. No acute lung abnormality is seen. 3. Slightly displaced acute fracture within the lateral right seventh rib. Diagnostic code #3
== END 2021-07-31 11:09 | disposition home or self-care (01) ==
LOC: JD.ED 09:00
DX: S22.31XA Fracture of one rib, right side, initial encounter for closed fracture (principal); E11.9 Type 2 diabetes mellitus without complications; Z79.84 Long term (current) use of oral hypoglycemic drugs; W22.8XXA Striking against or struck by other objects, initial encounter
CPT/HCPCS: 71250; 96374; 96375; 99284; J1170; J2765; J7030; 99283